=== PATIENT | male | born 1975 | race Caucasian/White ===

== ENCOUNTER 2020-04-18 12:31 | Outpatient (CLI) | payer MEDICARE, MEDICAID, SELFPAY ==
--- NOTE | 2020-04-18 12:43 | CT_ITS ---
WS: [id number] CT SHOULDER ARTHROGRAM TECHNIQUE: with coronal and sagittal reformatted images. CLINICAL INFORMATION: RT SHOULDER INTERNAL DERANGEMENT COMPARISON: None. DLP: [id number] scans at [facility] use at least one of these dose optimization techniques: automat ed exposure control; mA and/or kV adjustment per patient size (includes targeted exams where dose is matched to clinical indication); or iterative reconstruction. FINDINGS: Mild hypertrophic changes AC joint with mild downsloping acromion. Mild narrowing of the subacromial space. Supraspinatus appears intact. Normal infraspinatus. Normal teres minor. Distal subscapularis a ppears intact. Normal biceps tendon in the bicipital groove. No evidence of high-grade rotator cuff t ear. Glenoid labrum appears grossly intact. Mild degenerative fraying of the glenoid labrum. Moderate deg enerative narrowing of the glenohumeral joint. Bony glenoid is normal in appearance. Normal coracoid. Contrast extending into the subcoracoid recess. Partially visualized right lung is normal in appearance. Small noncalcified pulmonary nodule right lo wer lobe measuring 4 mm. Recommend follow-up chest CT. Clavicle is normal in appearance. CT/CT shoulder RT w con [id number] IMPRESSION: 1. No evidence of high-grade rotator cuff tear. Rotator cuff appears intact. 2. Mild hypertrophic changes AC joint with mild downsloping acromion. 3. Moderate degenerative narrowing at the glenohumeral joint. Bony glenoid claudia ears normal. 4. Normal biceps tendon in the bicipital groove. Biceps labral complex appears intact. 5. Glenoid labrum appears intact. Mild degenerative fraying of the glenoid lab rum. 6. Small noncalcified nodule right lower lobe subpleural in location measuring 4 mm. Recommend follow-up with chest CT.
--- NOTE | 2020-04-18 12:43 | IR_ITS ---
WS: [id number] SHOULDER ARTHROGRAM RIGHT Fluoroscopic guided right shoulder arthrogram CLINICAL INFORMATION: RT SHOULDER INTERNAL DERANGEMENT COMPARISON: None. PROCEDURE: The procedure including risks, benefits and complications were discussed with the patient, who agreed to proceed. Using sterile technique, the patient was prepped and draped in the usual ster ile fashion. After 1% lidocaine injection using fluoroscopic guidance, a 22-gauge spinal needle was a dvanced into the glenohumeral joint. Approximately 13 ml of a solution containing 5 ml normal saline, 10 ml Omnipaque 300, 5 ml 1% lidocaine, was administered. No immediate complications. FLUOROSCOPY TIME: 0.5 minutes. IR/IR arthrogram shoulderRT [id number] IMPRESSION: Uncomplicated fluoroscopic-guided right shoulder arthrogram. CT to follow.
[2020-04-18] MEDS: iohexol 300 mg/mL 50 mL Btl INTRA-ARTI (13:39)
== END 2020-04-18 12:32 | disposition home or self-care (01) ==
LOC: RADWPI 12:39
PROVIDERS: Family Provider Family Medicine; PCP Family Medicine; Visit Provider Family Medicine
DX: M24.9 Joint derangement, unspecified (principal); R91.1 Solitary pulmonary nodule
CPT/HCPCS: 23350; 73201; 77002; J2001; Q9967